=== PATIENT | male | born 1975 | race Caucasian/White ===

== ENCOUNTER 2018-08-12 18:29 | Emergency (ER) | payer OTHER ==
[2018-08-12 18:39] VITALS: RESP 18; TEMP 96.8; O2SAT 98
[2018-08-12 19:52] LABS: HEMOGLOBIN 13.6 g/dL (12.0-18.0); MEAN CELL VOLUME 89.5 fl (80.0-94.0); MEAN CORPUSCULAR HEMOGLOBIN 29.7 pg (27.0-31.0); MEAN CORPUSCULAR HGB CONC 33.2 g/dL (33.0-37.0); RBC 4.56 Mil/uL (4.40-5.90); RED CELL DISTRIBUTION WIDTH 12.5 % (11.5-14.5); WHITE BLOOD COUNT 10.2 K/uL (4.8-10.8)
[2018-08-12 20:02] VITALS: BP 132/91
[2018-08-12 20:07] LABS: BLOOD UREA NITROGEN 13 mg/dl (9-20); CALCIUM 9.6 mg/dL (8.4-10.2); GFR NON-AFRICAN AMERICAN > 60
--- NOTE | 2018-08-12 20:13 | ED PDOC ---
HPI: Chest Pain Time Seen by Provider: 08/12/18 19:09 Chief Complaint (Nursing): Chest Pain History Per: Patient History/Exam Limitations: no limitations Onset/Duration Of Symptoms: Hrs Current Symptoms Are (Timing): Better Additional Complaint(s): Patient with no PMHx presenting with resolved chest pain. States 6 months ago he had what he thought was a panic attack and today he experienced chest pain while at rest radiating to his right arm also into his neck, jaw, and sinuses. States he felt very anxious and his HR was reported to be 150bpm by EMS, patient states he started doing deep breathing and relaxation exercises and states the he started to feel better. Also states that he was not able to take deep breaths during the episode. On arrival to the ED, he states he's feeling much better. Denies family history of cardiac disease. Non-smoker, no drugs. PMD: Patient reports none Past Medical History Reviewed: Historical Data, Nursing Documentation, Vital Signs Vital Signs: Last Vital Signs Temp 96.8 F L 08/12/18 18:35 Pulse 65 08/12/18 19:15 Resp 18 08/12/18 18:35 BP 132/91 H 08/12/18 19:15 Pulse Ox 98 08/12/18 18:35 - Medical History PMH: HTN, Hypercholesterolemia - Family History Family History: States: Unknown Family Hx - Home Medications Home Medications: Ambulatory Orders Medication Instructions Recorded RX: No Known Home Med 08/12/18 - Allergies Allergies/Adverse Reactions: Allergies Allergy/AdvReac Type Severity Reaction Status Date / Time No Known Allergies Allergy Verified 08/12/18 18:35 Review of Systems ROS Statement: Except As Marked, All Systems Reviewed And Found Negative Cardiovascular: Positive for: Chest Pain, Palpitations Respiratory: Positive for: Shortness of Breath Psych: Positive for: Anxiety. Negative for: Depression, Psychosis, Suicidal ideation Physical Exam - Reviewed Nursing Documentation Reviewed: Yes Vital Signs Reviewed: Yes - Physical Exam Appears: Positive for: Well, Non-toxic, No Acute Distress Head Exam: Positive for: ATRAUMATIC, NORMAL INSPECTION, NORMOCEPHALIC Skin: Positive for: Normal Color, Warm, DRY Eye Exam: Positive for: EOMI, Normal appearance, PERRL ENT: Positive for: Normal ENT Inspection Neck: Positive for: Normal, Painless ROM Cardiovascular/Chest: Positive for: Regular Rate, Rhythm Respiratory: Positive for: CNT, Normal Breath Sounds Gastrointestinal/Abdominal: Positive for: Normal Exam, Soft. 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 Negative for: Motor/Sensory Deficits - Laboratory Results Result Diagrams: 08/12/18 19:26 08/12/18 19:26 - ECG ECG Rhythm: Positive for: Normal QRS, Normal ST Segment Rate: 63 O2 Sat by Pulse Oximetry: 98 Pulse Ox Interpretation: Normal - Radiology X-Ray: Interpreted by Ut X-Ray Interpretation: No Acute Disease Medical Decision Making Medical Decision MakinPM Patient presenting with resolved symptoms of chest pain, shortness of breath --Patient very well appearing with normal vitals and normal exam --EKG NSR, no abnormalities --Symptoms do not reflect ACS, however will get labs to risk stratify 819PM --Bloodwork negative --CXR negative --Patient drinks excessive caffeine, advised to abstain and to 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
[2018-08-12 20:19] VITALS: PULSE 63
--- NOTE | 2018-08-13 09:40 | RAD ---
Date of service: 08/12/2018 HISTORY: chest pain COMPARISON: No prior. TECHNIQUE: Chest PA and lateral FINDINGS: LUNGS: No active pulmonary disease. PLEURA: No significant pleural effusion identified. No pneumothorax apparent. CARDIOVASCULAR: No aortic atherosclerotic calcification present. Normal cardiac size. No pulmonary vascular congestion. OSSEOUS STRUCTURES: No significant abnormalities. VISUALIZED UPPER ABDOMEN: Normal. OTHER FINDINGS: None. IMPRESSION: No active disease.
== END 2018-08-12 20:35 | disposition home or self-care (01) ==
LOC: H.ER 18:29
DX: R07.89 Other chest pain (principal); I10 Essential (primary) hypertension; E78.00 Pure hypercholesterolemia, unspecified